=== PATIENT | male | born 1945 | race Two or more races ===

== ENCOUNTER → 2025-01-30 | Emergency (ER) | payer OTHER ==
[~2025-01-30] VITALS: Ht 167.6 cm; Wt 65.8 kg
[~2025-01-30] MED LIST: NORVASC5 MG PO; SYNTHROID75 MCG PO
== END | disposition home or self-care (01) ==
LOC: ER 09:41
DX: I10 Essential (primary) hypertension (principal); R53.81 Other malaise; Z88.0 Allergy status to penicillin